=== PATIENT | male | born 1965 | race Caucasian/White ===

== ENCOUNTER 2016-08-09 06:15 | Day surgery (SDC) | payer BC ==
[~2016-08-09] VITALS: Ht 182.9 cm; Wt 62.5 kg
== END 2016-08-09 11:11 | disposition home or self-care (01) ==
LOC: RAD.S 06:15 → EDSTATUS 08:00 → RAD.S 08:00
DX: L97.529 Non-pressure chronic ulcer of other part of left foot with unspecified severity (principal); I73.9 Peripheral vascular disease, unspecified; Z79.891 Long term (current) use of opiate analgesic